=== PATIENT | male | born 1950 | race Caucasian/White ===

== ENCOUNTER 2024-06-29 06:08 | Day surgery (SDC) | payer OTHER, MEDICARE, SELFPAY ==
[2024-06-24 08:47] LABS: Hematocrit 36.3 % (39.0-52.0); Mean Corp Hgb Conc. 33.1 g/dL (33.0-37.0); Mean Corpuscular Hgb 31.7 pg (27.0-31.0); Mean Platelet Volume 9.4 fL (7.4-10.4); Platelet Count 151 10^3/uL (130-400); Red Blood Cell Count 3.78 10^6/uL (4.70-6.10); Red Cell Dist. Width 13.1 % (11.5-14.5); White Blood Cell Count 4.4 10^3/uL (4.8-10.8)
[2024-06-24 08:56] LABS: Blood Urea Nitrogen 33 mg/dl (9-20); Calcium 9.8 mg/dl (8.4-10.2); Carbon Dioxide 28 mmol/L (22-30); Chloride 104 mmol/L (98-107); Glucose 109 mg/dl (70-99); Potassium 4.9 mmol/L (3.5-5.1); Sodium 145 mmol/L (135-145); eGFR > 60.00
[2024-06-24 09:27] VITALS: BMI 31.1
[2024-06-29] VITALS (10 sets, daily range): BP systolic 106–142; BP diastolic 55–75; BMI 31.1
[2024-06-29] MEDS: CELEBREX 200 MG PO (06:14)
[2024-06-29] MEDS: TYLENOL 1000 MG PO (06:14)
[2024-06-29 06:27] LABS: Glucose - Point of Care 94 mg/dl (70-99)
[2024-06-29 09:16] LABS: Glucose - Point of Care 94 mg/dl (70-99)
[2024-06-29] MEDS: DILAUDID 0.25 MG IV (09:33)
[2024-06-29] MEDS: MORPHINE SULFATE 1 MG IV (09:44)
[2024-06-29] MEDS: ROXICODONE 5 MG PO (11:16)
== END 2024-06-29 12:20 | disposition home or self-care (01) ==
LOC: SDS 06:08
PROVIDERS: ATTENDING PHYSICIAN Orthopaedic Surgery Hand Surgery; FAMILY PHYSICIAN Family Medicine
DX: S43.101A Unspecified dislocation of right acromioclavicular joint, initial encounter (principal); X58.XXXA Exposure to other specified factors, initial encounter; Y99.0 Civilian activity done for income or pay; Z98.890 Other specified postprocedural states
CPT/HCPCS: 23552; C1713; 76000; 80048; 82962; 85027; 93005